=== PATIENT | male | born 2000 | race Two or more races ===

== ENCOUNTER 2019-09-03 11:13 | Emergency (ER) | payer BC ==
[~2019-09-03] VITALS: Ht 188 cm; Wt 101.3 kg
[~2019-09-03 11:13] MED LIST: AMOX500C2 PO; DOCU250C58 PO; FAMO-96 PO; FLA250 PO; HYDR4TAB PO; LORA-441 PO; MAG-19 PO; MES250 PO; OMEP40CA38 PO; REGS PO; TRAM50TA2 PO
[2019-09-03] MEDS ORDERED: LORAZEPAM 2 MG INJ IV STA (11:17)
[2019-09-03] MEDS ORDERED: LORAZEPAM 2 MG INJ ONE (11:17)
[2019-09-03] MEDS ORDERED: SOD CHLORIDE 0.9% 1,000 ML IV STA (11:17)
[2019-09-03 11:28] VITALS: Ht 188 cm; Wt 101.3 kg
[2019-09-03] MEDS ORDERED: LORAZEPAM 2 MG INJ IM ONE (11:30)
[2019-09-03] MEDS ORDERED: OLANZAPINE 5 MG TAB PO ONE (13:00)
[2019-09-03] MEDS ORDERED: LORAZEPAM 2 MG INJ IV ONE (13:00)
[2019-09-03] MEDS ORDERED: BELLADONNA/PHENOBARBITAL TAB PO STA (13:49)
[2019-09-03] MEDS ORDERED: FAMOTIDINE 20 MG INJ IV STA (13:49)
[2019-09-03] MEDS ORDERED: LIDOCAINE/MYLANTA 40 ML BTL PO STA (13:49)
[2019-09-03] MEDS ORDERED: KETOROLAC 30 MG INJ IV STA (13:49)
[2019-09-03] MEDS ORDERED: ONDANSETRON 4 MG INJ IV STA (13:49)
[2019-09-03] MEDS: LORAZEPAM 2 MG INJ IV ONE ×2 (14:38→14:45)
[2019-09-03 14:57] VITALS: BP 128/86; PULSE 80; RESP 18
== END 2019-09-03 18:27 | disposition home or self-care (01) ==
LOC: E/R 11:13
DX: F45.8 Other somatoform disorders (principal); R40.2242 Coma scale, best verbal response, confused conversation, at arrival to emergency department; R40.2142 Coma scale, eyes open, spontaneous, at arrival to emergency department; R40.2362 Coma scale, best motor response, obeys commands, at arrival to emergency department; R10.13 Epigastric pain; F41.9 Anxiety disorder, unspecified
CPT/HCPCS: 71045; 80053; 80307; 82150; 83690; 85025; 85610; 85730; 93005; 96374; 96375; 96376; 99285; J1885; J2060; J2405; J7030; Z7610